=== PATIENT | male | born 1965 | race Caucasian/White ===

== ENCOUNTER 2016-11-16 09:19 | Outpatient (CLI) | payer MEDICARE ==
[2016-11-16 12:29] LABS: #Basophils 0.1 thou/uL (0.0-0.2); #Eosinphils 0.3 thou/uL (0.0-0.7); #Lymphocytes 3.1 thou/uL (1.20-3.40); #Monocytes 0.6 thou/uL (0.11-0.59); #Neutrophils 4.5 thou/uL (1.40-6.50); %Eosinophils 3.5 % (0.0-10.0); %Monocytes 6.5 % (0.0-10.0); Hematocrit 49.9 % (42.0-52.0); Mean Platelet Volume 6.4 fL (7.4-10.4); Red Blood Cell (RBC) Count 5.75 mill/uL (4.70-6.10); White Blood Cell (WBC) Count 8.6 thou/uL (4.8-10.8)
[2016-11-16 12:39] LABS: ALT (SGPT) 19 U/L (0-55); AST (SGOT) 19 U/L (5-34); Alkaline Phosphatase 70 U/L (40-150); Anion Gap 19 mmol/L (10-20); BUN (Urea Nitrogen) 20 mg/dL (8.4-25.7); Bilirubin, Direct 0.1 mg/dL (0.1-0.3); Bilirubin, Total 0.3 mg/dL (0.2-1.2); Calc. Creatinine Clearance 0 mL/min (70-130); Calcium 9.7 mg/dL (7.8-10.44); Carbon Dioxide 19 mmol/L (22-29); Chloride 104 mmol/L (98-107); Estimated GFR-MDRD Greater than 90; LDL Cholesterol, Calculated 95 mg/dL; Protein, Total 6.8 g/dL (6.0-8.3)
[2016-11-16 13:02] LABS: Hemoglobin A1c 5.8 % (4.0-6.0)
== END 2016-11-16 09:20 | disposition home or self-care (01) ==
LOC: NAVSJIPCSP 09:19 → EDSTATUS 12:58
PROVIDERS: ATTEND Nurse Practitioner Family
DX: Z12.5 Encounter for screening for malignant neoplasm of prostate (principal); I11.9 Hypertensive heart disease without heart failure; I63.9 Cerebral infarction, unspecified; E11.9 Type 2 diabetes mellitus without complications; R56.9 Unspecified convulsions; Z79.899 Other long term (current) drug therapy
CPT/HCPCS: 36415; 80048; 80061; 80076; 83036; 84443; 85025; G0103

== ENCOUNTER 2017-03-22 10:31 | Outpatient (CLI) | payer MEDICARE, OTHER ==
[2017-03-22 14:23] LABS: #Basophils 0.1 thou/uL (0.0-0.2); #Eosinphils 0.3 thou/uL (0.0-0.7); #Lymphocytes 2.8 thou/uL (1.20-3.40); #Monocytes 0.4 thou/uL (0.11-0.59); #Neutrophils 4.2 thou/uL (1.40-6.50); %Basophils 0.8 % (0.0-1.0); %Eosinophils 3.6 % (0.0-10.0); %Lymphocytes 36.1 % (21.0-51.0); %Monocytes 5.2 % (0.0-10.0); %Neutrophils 54.3 % (42.0-75.0); Hemoglobin 15.7 g/dL (14.0-18.0); Mean Corpuscular HGB CONC 32.2 g/dL (32.0-36.0); Mean Corpuscular Volume 83.8 fl (80.0-94.0); Mean Platelet Volume 6.8 fL (7.4-10.4); Platelet Count 258 thou/uL (130-400); RBC Distribution Width 12.6 % (11.5-14.5); Red Blood Cell (RBC) Count 5.82 mill/uL (4.70-6.10); White Blood Cell (WBC) Count 7.8 thou/uL (4.8-10.8)
[2017-03-22 14:32] LABS: ALT (SGPT) 36 U/L (8-55); AST (SGOT) 19 U/L (5-34); Albumin 4.3 g/dL (3.5-5.0); Alkaline Phosphatase 97 U/L (40-150); Anion Gap 17 mmol/L (10-20); BUN (Urea Nitrogen) 13 mg/dL (8.4-25.7); Bilirubin, Direct 0.1 mg/dL (0.1-0.3); Bilirubin, Total 0.3 mg/dL (0.2-1.2); Calc. Creatinine Clearance 0 mL/min (70-130); Calcium 9.3 mg/dL (7.8-10.44); Carbon Dioxide 22 mmol/L (22-29); Cardiac Risk 3.8 (Less than 4.5); Chloride 101 mmol/L (98-107); Cholesterol 128 mg/dl (< 200 Desired); Estimated GFR-MDRD Greater than 90; Glucose 97 mg/dL (70-105); HDL Cholesterol 34 mg/dL (>60 Neg Risk); LDL Cholesterol, Calculated 45 mg/dL; Potassium 4.4 mmol/L (3.5-5.1); Protein, Total 6.4 g/dL (6.0-8.3); Sodium 136 mmol/L (136-145); Triglycerides 246 mg/dL (Less than 150)
[2017-03-22 14:43] LABS: PSA-Asymptomatic (SCREENING) 0.5 ng/mL (0-4.0); Thyroid Stimulating Hormone 0.5641 uIU/mL (0.35-4.94)
== END 2017-03-22 10:32 ==
LOC: NAVSJIPCSP 10:31
PROVIDERS: ATTEND Nurse Practitioner Family
DX: Z12.5 Encounter for screening for malignant neoplasm of prostate (principal); E11.9 Type 2 diabetes mellitus without complications; I63.9 Cerebral infarction, unspecified; I11.9 Hypertensive heart disease without heart failure; I73.9 Peripheral vascular disease, unspecified
CPT/HCPCS: 36415; 80048; 80061; 80076; 83036; 84443; 85025; G0103

== ENCOUNTER 2018-09-30 11:27 | Outpatient (CLI) | payer MEDICARE, MEDICAID ==
--- NOTE | 2018-09-30 13:54 | RAD ---
FRONTAL AND LATERAL IMAGING LEFT HIP: DATE: 09/30/2018. HISTORY: Left hip pain. FINDINGS: There is prominent degenerative change involving the left hip with superior joint space narrowing as well as prominent subchondral sclerosis of the acetabular roof and the femoral head. There is also p rominent lateral acetabular osteophyte formation. There is postoperative hardware within the femoral shaft and femoral neck. Postoperative antegrade intramedullary bryce extends to the level of the dist al left femur. No evidence for hardware failure. No acute fracture or dislocation. IMPRESSION: Postoperative changes of the left femur. Severe left hip degenerative joint disease. POS: [facility]
== END 2018-09-30 11:28 | disposition home or self-care (01) ==
LOC: NAV RAD 11:27
PROVIDERS: ATTEND Family Medicine
DX: M25.552 Pain in left hip (principal); M16.12 Unilateral primary osteoarthritis, left hip; Z98.890 Other specified postprocedural states

== ENCOUNTER 2019-05-13 09:49 | Emergency (ER) | payer MEDICARE, MEDICAID | END 2019-05-13 10:20 | disposition home or self-care (01) | LOC: NAV ERS 09:49 | DX: L72.3 Sebaceous cyst (principal); K21.9 Gastro-esophageal reflux disease without esophagitis; I10 Essential (primary) hypertension; F41.9 Anxiety disorder, unspecified; F17.210 Nicotine dependence, cigarettes, uncomplicated; Z79.01 Long term (current) use of anticoagulants; Z79.899 Other long term (current) drug therapy; Z79.82 Long term (current) use of aspirin; Z86.73 Personal history of transient ischemic attack (TIA), and cerebral infarction without residual deficits; Z86.718 Personal history of other venous thrombosis and embolism | CPT/HCPCS: 99282 ==

== ENCOUNTER 2020-11-17 17:47 | Emergency (ER) | payer MEDICARE, OTHER, MEDICAID ==
[2020-11-17 18:54] LABS: Bilirubin Negative (Negative); Blood, Urine Trace (Negative); Glucose, Urine (Dipstick) Negative (Negative); Ketone, Urine Negative (Negative); Leukocyte Negative (Negative); Nitrite Negative (Negative); Protein, Urine (Dipstick) 30 mg/dL (Neg-Trace); Urobilinogen 0.2 mg/dL (Less than 2)
[2020-11-17 18:57] LABS: Clarity SL HAZY (Clear)
[2020-11-17] MEDS ORDERED: Sodium Chloride 0.9% 2,000 ML ONE (19:02)
[2020-11-17 19:06] LABS: RBC/HPF 0-3 HPF (0-3); Squamous Epithelial 0-3 HPF (0-3); WBC/HPF 0-3 HPF (0-3)
[2020-11-17] MEDS ORDERED: Bisacodyl 10 MG SUPP ONE (19:18)
[2020-11-17 20:01] LABS: #Basophils 0.1 thou/uL (0.0-0.2); #Eosinphils 0.2 thou/uL (0.0-0.7); #Monocytes 1.2 thou/uL (0.11-0.59); #Neutrophils 11.5 thou/uL (1.40-6.50); %Basophils 0.6 % (0.0-1.0); %Lymphocytes 18.9 % (21.0-51.0); %Monocytes 7.4 % (0.0-10.0); %Neutrophils 72.2 % (42.0-75.0); Hemoglobin 15.6 g/dL (14.0-18.0); Mean Corpuscular HGB CONC 34.3 g/dL (32.0-36.0); Mean Corpuscular Hemoglobin 29.2 pg (27.0-31.0); Mean Corpuscular Volume 84.9 fL (78.0-98.0); Mean Platelet Volume 7.1 fL (7.4-10.4); Platelet Count 328 thou/uL (130-400); RBC Distribution Width 12.3 % (11.5-14.5); Red Blood Cell (RBC) Count 5.35 mill/uL (4.70-6.10)
[2020-11-17 20:07] LABS: ALT (SGPT) 16 U/L (8-55); AST (SGOT) 15 U/L (5-34); Albumin 4.1 g/dL (3.5-5.0); Alkaline Phosphatase 82 U/L (40-110); Anion Gap 18 mmol/L (10-20); BUN (Urea Nitrogen) 13 mg/dL (8.4-25.7); Bilirubin, Total 0.3 mg/dL (0.2-1.2); Calc. Creatinine Clearance 0 mL/min (70-130); Calcium 9.3 mg/dL (7.8-10.44); Carbon Dioxide 20 mmol/L (22-29); Chloride 101 mmol/L (98-107); Globulin 2.9 g/dL (2.4-3.5); Glucose 114 mg/dL (70-105); Potassium 3.5 mmol/L (3.5-5.1); Sodium 135 mmol/L (136-145)
== END 2020-11-17 20:42 | disposition home or self-care (01) ==
LOC: NAV ERS 17:47
DX: K59.00 Constipation, unspecified (principal); K64.4 Residual hemorrhoidal skin tags; K64.8 Other hemorrhoids; E86.9 Volume depletion, unspecified; K21.9 Gastro-esophageal reflux disease without esophagitis; I10 Essential (primary) hypertension; Z86.73 Personal history of transient ischemic attack (TIA), and cerebral infarction without residual deficits; F17.210 Nicotine dependence, cigarettes, uncomplicated; Z79.82 Long term (current) use of aspirin; Z79.899 Other long term (current) drug therapy
CPT/HCPCS: 74019; 80053; 81003; 81015; 82274; 85025; J7050

== ENCOUNTER 2022-02-01 11:37 | Emergency (ER) | payer MEDICARE, MEDICAID ==
[2022-02-01] MEDS ORDERED: Lidocaine 1% 20 ML MDV ONE (12:10)
[2022-02-01] MEDS ORDERED: Boostrix 0.5 ML (Tdap) VIAL ONE (12:10)
[2022-02-01] MEDS ORDERED: Bacitracin 1 PK ONE (12:53)
[2022-02-01] MEDS ORDERED: Sulfameth/Trimethoprim DS 800-160mg TAB ONE (13:05)
== END 2022-02-01 13:09 | disposition home or self-care (01) ==
LOC: NAV ERS 11:37
DX: L02.31 Cutaneous abscess of buttock (principal); Z86.718 Personal history of other venous thrombosis and embolism; K21.9 Gastro-esophageal reflux disease without esophagitis; I10 Essential (primary) hypertension; Z86.73 Personal history of transient ischemic attack (TIA), and cerebral infarction without residual deficits; F17.210 Nicotine dependence, cigarettes, uncomplicated; Z23 Encounter for immunization
CPT/HCPCS: 10060; 87070; 87205; 90471; 90715

== ENCOUNTER 2022-10-12 12:02 | Emergency (ER) | payer MEDICARE, MEDICAID ==
[2022-10-12] MEDS ORDERED: Lidocaine 1% (PF) 30 ML VIAL ONE (12:51)
[2022-10-12] MEDS ORDERED: Clindamycin 150 MG CAP ONE (12:52)
== END 2022-10-12 13:48 | disposition home or self-care (01) ==
LOC: NAV ERS 12:02
DX: L02.31 Cutaneous abscess of buttock (principal); K21.9 Gastro-esophageal reflux disease without esophagitis; I10 Essential (primary) hypertension; F17.210 Nicotine dependence, cigarettes, uncomplicated
CPT/HCPCS: 10060; 87070; 87205; J2001

== ENCOUNTER 2023-03-19 04:37 | Emergency (ER) | payer MEDICARE, MEDICAID ==
[2023-03-19] MEDS ORDERED: Sodium Chloride 0.9% 1,000 ML ONE (05:33)
[2023-03-19 05:48] LABS: #Basophils 0.1 thou/uL (0.0-0.2); #Eosinphils 0.1 thou/uL (0.0-0.7); #Lymphocytes 2.4 thou/uL (1.20-3.40); #Neutrophils 8.6 thou/uL (1.40-6.50); %Basophils 0.8 % (0.0-1.0); %Eosinophils 1.2 % (0.0-10.0); %Lymphocytes 19.8 % (21.0-51.0); %Monocytes 8.2 % (0.0-10.0); Hemoglobin 14.2 g/dL (14.0-18.0); Mean Corpuscular HGB CONC 31.7 g/dL (32.0-36.0); Mean Corpuscular Hemoglobin 26.2 pg (27.0-31.0); Mean Corpuscular Volume 82.6 fl (78.0-98.0); Mean Platelet Volume 6.9 fL (7.4-10.4); Platelet Count 316 10x3/uL (130-400); Red Blood Cell (RBC) Count 5.43 mill/uL (4.70-6.10); White Blood Cell (WBC) Count 12.3 10x3/uL (4.8-10.8)
[2023-03-19 06:08] LABS: ALT (SGPT) 11 U/L (8-55); AST (SGOT) 11 U/L (5-34); Albumin 4.1 g/dL (3.5-5.0); Alkaline Phosphatase 60 U/L (40-110); Anion Gap 14 mmol/L (10-20); BUN (Urea Nitrogen) 27 mg/dL (8.4-25.7); Bilirubin, Total 0.3 mg/dL (0.2-1.2); Calc. Creatinine Clearance 0 mL/min (70-130); Calcium 9.8 mg/dL (7.8-10.44); Carbon Dioxide 24 mmol/L (22-29); Chloride 104 mmol/L (98-107); Estimated GFR 99; Globulin 3.1 g/dL (2.4-3.5); Glucose 148 mg/dL (70-105); Potassium 3.6 mmol/L (3.5-5.1); Protein, Total 7.2 g/dL (6.0-8.3); Sodium 138 mmol/L (136-145)
== END 2023-03-19 14:15 | disposition left against medical advice (07) ==
LOC: NAV ERS 04:37
DX: K92.2 Gastrointestinal hemorrhage, unspecified (principal); D72.829 Elevated white blood cell count, unspecified; K21.9 Gastro-esophageal reflux disease without esophagitis; I10 Essential (primary) hypertension; F17.210 Nicotine dependence, cigarettes, uncomplicated; Z79.82 Long term (current) use of aspirin; Z79.899 Other long term (current) drug therapy
CPT/HCPCS: 71045; 80053; 83880; 84484; 85025; 93005; 94760; 96360; J7050

== ENCOUNTER 2023-06-15 10:42 | Emergency (ER) | payer MEDICARE, MEDICAID | END 2023-06-15 11:20 | disposition home or self-care (01) | LOC: NAV ERS 10:42 | DX: H61.21 Impacted cerumen, right ear (principal); F17.210 Nicotine dependence, cigarettes, uncomplicated; K21.9 Gastro-esophageal reflux disease without esophagitis; Z79.899 Other long term (current) drug therapy | CPT/HCPCS: 99282 ==

== ENCOUNTER 2023-11-26 11:09 | Outpatient (CLI) | payer MEDICARE, MEDICAID | END 2023-11-26 11:10 | disposition home or self-care (01) | LOC: NAV CT 11:09 | PROVIDERS: ATTEND Neurological Surgery | DX: B33.4 Hantavirus (cardio)-pulmonary syndrome [HPS] [HCPS] (principal); I61.9 Nontraumatic intracerebral hemorrhage, unspecified; N28.1 Cyst of kidney, acquired; G93.89 Other specified disorders of brain; Z98.2 Presence of cerebrospinal fluid drainage device | CPT/HCPCS: 70450; 74150 ==

== ENCOUNTER 2024-06-05 08:32 | Inpatient (IN) | payer OTHER ==
[2024-06-05 09:33] LABS: SARS-CoV-2 E Target Negative; SARS-CoV-2 N2 Target Negative; SARS-CoV-2 NAA Rapid Test Not Detected (NotDetected); SARS-CoV-2 RdRP gene Negative
[2024-06-05 10:36] LABS: Anion Gap 19 mmol/L (10-20); BUN (Urea Nitrogen) 26 mg/dL (8.4-25.7); Calc. Creatinine Clearance 0 mL/min (70-130); Calcium 9.5 mg/dL (7.8-10.44); Carbon Dioxide 20 mmol/L (22-29); Chloride 98 mmol/L (98-107); Estimated GFR 98; Glucose 120 mg/dL (70-105); Potassium 3.1 mmol/L (3.5-5.1); Sodium 134 mmol/L (136-145)
[2024-06-05 10:54] LABS: ALT (SGPT) 17 U/L (8-55); AST (SGOT) 26 U/L (5-34); Albumin 2.7 g/dL (3.5-5.0); Alkaline Phosphatase 80 U/L (40-110); Bilirubin, Total 0.2 mg/dL (0.2-1.2); Protein, Total 6.9 g/dL (6.0-8.3)
[2024-06-05 11:01] LABS: Hematocrit 34.5 % (42.0-52.0); Hemoglobin 10.9 g/dL (14.0-18.0); Mean Corpuscular HGB CONC 31.5 g/dL (32.0-36.0); Mean Corpuscular Hemoglobin 24.7 pg (27.0-31.0); Mean Corpuscular Volume 78.4 fl (78.0-98.0); Mean Platelet Volume 7.1 fL (7.4-10.4); Platelet Count 556 10x3/uL (130-400); RBC Distribution Width 13.3 % (11.5-14.5); Red Blood Cell (RBC) Count 4.41 mill/uL (4.70-6.10); White Blood Cell (WBC) Count 19.9 10x3/uL (4.8-10.8)
[2024-06-05 11:02] LABS: Band 3 % (5-11); Lymphocytes 19 % (21-51); MDiff Complete? YES; Monocytes 6 % (0-10); Neutrophil 72 % (42-75); Platelet Adequacy Comment Appears Adequate
[2024-06-05] MEDS ORDERED: Ondansetron ODT 4 MG TAB SL PRN (12:16)
[2024-06-05] MEDS ORDERED: Senokot S 8.6-50 MG TAB PO PRN (12:16)
[2024-06-05] MEDS ORDERED: Acetaminophen 325 MG TAB PO PRN (12:16)
[2024-06-05 14:42] VITALS: BMI 30.2
[2024-06-05] MEDS: Sodium Chloride 0.9% 100 ML ONE (15:17)
[2024-06-05] MEDS: Potassium Chloride 20 MEQ TAB ONE (15:17)
[2024-06-05] MEDS: Acetaminophen 325 MG TAB ONE (15:17)
[2024-06-05] MEDS: Ipratropium/Albuterol 3 ML NEB ONE (15:17)
[2024-06-05] MEDS: Sodium Chloride 0.9% 1,000 ML ONE (15:17)
[2024-06-05] MEDS: cefTRIAXone (ROCEPHIN) 2 GM VIAL ONE (15:17)
[2024-06-05] MEDS: Azithromycin 500 MG VIAL ONE (15:18)
[2024-06-05] MEDS: Sodium Chloride 0.9% 250 ML 250 ML ONE (15:18)
[2024-06-05] MEDS: predniSONE 20 MG TAB PO SCH (15:22)
[2024-06-05] MEDS: Ipratropium/Albuterol 3 ML NEB NEB PRN (15:25)
[2024-06-05] MEDS: Ipratropium/Albuterol 3 ML NEB NEB SCH (15:27)
[2024-06-05] MEDS: Sodium Chloride 0.9% 1,000 ML IV SCH (16:10)
[2024-06-05 19:47] LABS: Dilantin 8.2 ug/mL (10.0-20.0)
[2024-06-05] MEDS ORDERED: NIRMATRELVIR 150 MG (X 2)/RITONAVIR 100 MG TAB PO SCH (21:00)
[2024-06-05] MEDS: Phenytoin Extended Release 100 MG CAP PO SCH (21:07)
[2024-06-05] MEDS: Lisinopril 20 MG TAB PO SCH (21:07)
[2024-06-05] MEDS: Famotidine 20 MG TAB PO SCH (21:07)
[2024-06-06 05:58] LABS: #Monocytes 0.9 thou/uL (0.11-0.59); #Neutrophils 7.9 thou/uL (1.40-6.50); %Basophils 0.4 % (0.0-1.0); %Eosinophils 0.3 % (0.0-10.0); %Monocytes 8.3 % (0.0-10.0); %Neutrophils 72.9 % (42.0-75.0); Hematocrit 32.8 % (42.0-52.0); Hemoglobin 10.1 g/dL (14.0-18.0); Mean Corpuscular HGB CONC 30.8 g/dL (32.0-36.0); Mean Corpuscular Hemoglobin 24.3 pg (27.0-31.0); Mean Corpuscular Volume 78.8 fl (78.0-98.0); Mean Platelet Volume 6.5 fL (7.4-10.4); Platelet Count 462 10x3/uL (130-400); RBC Distribution Width 13.4 % (11.5-14.5); Red Blood Cell (RBC) Count 4.16 mill/uL (4.70-6.10); White Blood Cell (WBC) Count 10.9 10x3/uL (4.8-10.8)
[2024-06-06 06:07] LABS: Anion Gap 14 mmol/L (10-20); BUN (Urea Nitrogen) 12 mg/dL (8.4-25.7); Calc. Creatinine Clearance 160 mL/min (70-130); Calcium 8.8 mg/dL (7.8-10.44); Carbon Dioxide 23 mmol/L (22-29); Chloride 106 mmol/L (98-107); Estimated GFR 110; Glucose 93 mg/dL (70-105); Potassium 3.2 mmol/L (3.5-5.1); Sodium 140 mmol/L (136-145)
[2024-06-06] MEDS: REMDESIVIR 200 MG in Sodium Chloride 0.9% 250 ML 210 ML IV SCH (09:03)
[2024-06-06] MEDS: Aspirin Chewable 81 MG TAB PO SCH (09:22)
[2024-06-06] MEDS: Clopidogrel Bisulfate 75 MG TAB PO SCH (09:22)
[2024-06-06] MEDS: Oxybutynin ER 5 MG TAB PO SCH (09:22)
[2024-06-06] MEDS: predniSONE 20 MG TAB PO SCH (09:23)
[2024-06-06] MEDS: Nicotine 21 MG PATCH TD SCH (09:23)
[2024-06-06] MEDS: cefTRIAXone\\ROCEPHIN 1 GM in Sodium Chloride 0.9% 100 ML IVPB SCH (09:25)
[2024-06-06] MEDS: Azithromycin 500 MG in Sodium Chloride 0.9% 250 ML 250 ML IVPB SCH (11:26)
[2024-06-06] MEDS: Potassium Chloride 20 MEQ TAB PO SCH (12:27)
[2024-06-06] MEDS: ALPRAZolam 0.5 MG TAB PO PRN (20:49)
[2024-06-06] MEDS: Mometasone 100 MCG/Formoterol 5 MCG 60 PUFF AEROSOL INH SCH (20:49)
[2024-06-07] MEDS: Benzonatate 100 MG CAP PO SCH (01:27)
[2024-06-07] MEDS: Guaifenesin DM 100-10/5 ML UDCUP PO PRN (05:19)
[2024-06-07 06:08] LABS: #Basophils 0.1 thou/uL (0.0-0.2); #Eosinphils 0.1 thou/uL (0.0-0.7); #Lymphocytes 2.1 thou/uL (1.20-3.40); #Monocytes 0.8 thou/uL (0.11-0.59); #Neutrophils 5.2 thou/uL (1.40-6.50); %Basophils 1.2 % (0.0-1.0); %Eosinophils 0.7 % (0.0-10.0); %Lymphocytes 25.8 % (21.0-51.0); %Monocytes 9.3 % (0.0-10.0); %Neutrophils 63.1 % (42.0-75.0); Hematocrit 29.7 % (42.0-52.0); Hemoglobin 9.4 g/dL (14.0-18.0); Mean Corpuscular HGB CONC 31.6 g/dL (32.0-36.0); Mean Corpuscular Hemoglobin 24.8 pg (27.0-31.0); Mean Corpuscular Volume 78.4 fl (78.0-98.0); Mean Platelet Volume 6.3 fL (7.4-10.4); Platelet Count 493 10x3/uL (130-400); RBC Distribution Width 13.8 % (11.5-14.5); Red Blood Cell (RBC) Count 3.79 mill/uL (4.70-6.10); White Blood Cell (WBC) Count 8.2 10x3/uL (4.8-10.8)
[2024-06-07 06:09] LABS: Anion Gap 14 mmol/L (10-20); BUN (Urea Nitrogen) 11 mg/dL (8.4-25.7); Calc. Creatinine Clearance 165 mL/min (70-130); Calcium 8.8 mg/dL (7.8-10.44); Carbon Dioxide 23 mmol/L (22-29); Chloride 109 mmol/L (98-107); Estimated GFR 111; Glucose 120 mg/dL (70-105); Potassium 3.4 mmol/L (3.5-5.1); Sodium 143 mmol/L (136-145)
[2024-06-07] MEDS: REMDESIVIR 100 MG in Sodium Chloride 0.9% 250 ML 230 ML IV SCH (09:16)
[2024-06-07] MEDS: HYDROcodone/Acetaminophen 10/325 mg Tablet PO PRN (09:37)
[2024-06-07] MEDS: Potassium Chloride 20 MEQ TAB PO SCH (18:19)
[2024-06-08 05:53] LABS: %Lymphocytes 34.2 % (21.0-51.0); %Monocytes 8.9 % (0.0-10.0); %Neutrophils 54.8 % (42.0-75.0); Hematocrit 32.4 % (42.0-52.0); Hemoglobin 9.9 g/dL (14.0-18.0); Mean Corpuscular HGB CONC 30.4 g/dL (32.0-36.0); Mean Corpuscular Hemoglobin 23.9 pg (27.0-31.0); Mean Corpuscular Volume 78.7 fl (78.0-98.0); Mean Platelet Volume 6.3 fL (7.4-10.4); Platelet Count 550 10x3/uL (130-400); RBC Distribution Width 13.9 % (11.5-14.5); Red Blood Cell (RBC) Count 4.11 mill/uL (4.70-6.10); White Blood Cell (WBC) Count 6.2 10x3/uL (4.8-10.8)
[2024-06-08 05:54] LABS: #Basophils 0.1 thou/uL (0.0-0.2); #Eosinphils 0.1 thou/uL (0.0-0.7); #Lymphocytes 2.1 thou/uL (1.20-3.40); #Monocytes 0.5 thou/uL (0.11-0.59); #Neutrophils 3.4 thou/uL (1.40-6.50); %Basophils 1.3 % (0.0-1.0); %Eosinophils 0.9 % (0.0-10.0)
[2024-06-08 06:06] LABS: Anion Gap 13 mmol/L (10-20); BUN (Urea Nitrogen) 10 mg/dL (8.4-25.7); Calc. Creatinine Clearance 168 mL/min (70-130); Carbon Dioxide 25 mmol/L (22-29); Chloride 110 mmol/L (98-107); Estimated GFR 112; Glucose 107 mg/dL (70-105); Potassium 3.7 mmol/L (3.5-5.1); Sodium 144 mmol/L (136-145)
[2024-06-08 13:34] VITALS: TEMP 98
[2024-06-08 16:20] VITALS: BP 174/77
[2024-06-08] MEDS ORDERED: hydrALAZINE 10 MG TAB PO PRN (17:47)
== END 2024-06-08 18:15 | disposition swing bed (61) | DRG 871 ==
LOC: NAV ERS 08:32 → UNDOADMIN 13:31 → NAV ACUTE 13:31
PROVIDERS: ADMIT Family Medicine; ATTEND Family Medicine
PROC: 3E03329 Introduction of Other Anti-infective into Peripheral Vein, Percutaneous Approach (ICD-10-PCS; principal; 2024-06-05)
PROC: XW033E5 Introduction of Remdesivir Anti-infective into Peripheral Vein, Percutaneous Approach, New Technology Group 5 (ICD-10-PCS; 2024-06-06)
DX: A41.9 Sepsis, unspecified organism (principal); J18.9 Pneumonia, unspecified organism; J96.01 Acute respiratory failure with hypoxia; U07.1 COVID-19; J44.1 Chronic obstructive pulmonary disease with (acute) exacerbation; E87.6 Hypokalemia; I10 Essential (primary) hypertension; E78.5 Hyperlipidemia, unspecified; Z79.899 Other long term (current) drug therapy; Z90.89 Acquired absence of other organs; Z98.890 Other specified postprocedural states
CPT/HCPCS: 36415; 71046; 80048; 80185; 82040; 82247; 83605; 84075; 84145; 84155; 84450; 84460; 85025; 87040; 87070; 87077; 87205; 87804; 94640; 94664; 94760; 96365; 96367; J0248; J0456; J0696; J7030; J7050; J7512; J7620; U0002

== ENCOUNTER 2024-06-08 15:10 | Inpatient (IN) | payer OTHER ==
[2024-06-08] MEDS ORDERED: hydrALAZINE 10 MG TAB PO PRN (17:53)
[2024-06-08] MEDS ORDERED: HYDROcodone/Acetaminophen 10/325 mg Tablet PO PRN (17:53)
[2024-06-08] MEDS ORDERED: Guaifenesin DM 100-10/5 ML UDCUP PO PRN (17:53)
[2024-06-08] MEDS ORDERED: Acetaminophen 325 MG TAB PO PRN (17:53)
[2024-06-08] MEDS ORDERED: Senokot S 8.6-50 MG TAB PO PRN (17:57)
[2024-06-08] MEDS ORDERED: Ondansetron ODT 4 MG TAB SL PRN (17:57)
[2024-06-08] MEDS ORDERED: REMDESIVIR 100 MG IV SCH (18:00)
[2024-06-08] MEDS: Ipratropium/Albuterol 3 ML NEB NEB SCH (18:33)
[2024-06-08] MEDS ORDERED: Phenytoin Extended Release 100 MG CAP PO SCH (21:00)
[2024-06-08] MEDS: Benzonatate 100 MG CAP PO SCH (22:09)
[2024-06-08] MEDS: Lisinopril 20 MG TAB PO SCH (22:09)
[2024-06-08] MEDS: Mometasone 100 MCG/Formoterol 5 MCG 60 PUFF AEROSOL INH SCH (22:10)
[2024-06-08] MEDS: Phenytoin Extended Release 100 MG CAP PO SCH (22:10)
[2024-06-08] MEDS: Famotidine 20 MG TAB PO SCH (22:10)
[2024-06-08] MEDS: Ipratropium/Albuterol 3 ML NEB NEB PRN (22:13)
[2024-06-08 23:59] VITALS: BMI 30.3
[2024-06-09 05:53] LABS: #Basophils 0.1 thou/uL (0.0-0.2); #Eosinphils 0.1 thou/uL (0.0-0.7); #Lymphocytes 2.2 thou/uL (1.20-3.40); #Monocytes 0.7 thou/uL (0.11-0.59); #Neutrophils 5.1 thou/uL (1.40-6.50); %Basophils 1.3 % (0.0-1.0); %Eosinophils 0.9 % (0.0-10.0); %Lymphocytes 26.7 % (21.0-51.0); %Monocytes 8.6 % (0.0-10.0); %Neutrophils 62.5 % (42.0-75.0); Hematocrit 33.5 % (42.0-52.0); Hemoglobin 10.3 g/dL (14.0-18.0); Mean Corpuscular HGB CONC 30.8 g/dL (32.0-36.0); Mean Corpuscular Hemoglobin 24.3 pg (27.0-31.0); Mean Corpuscular Volume 78.8 fl (78.0-98.0); Mean Platelet Volume 5.9 fL (7.4-10.4); Platelet Count 603 10x3/uL (130-400); RBC Distribution Width 13.8 % (11.5-14.5); Red Blood Cell (RBC) Count 4.25 mill/uL (4.70-6.10); White Blood Cell (WBC) Count 8.2 10x3/uL (4.8-10.8)
[2024-06-09 06:05] LABS: ALT (SGPT) 82 U/L (8-55); AST (SGOT) 55 U/L (5-34); Albumin 2.5 g/dL (3.5-5.0); Alkaline Phosphatase 74 U/L (40-110); Anion Gap 14 mmol/L (10-20); BUN (Urea Nitrogen) 10 mg/dL (8.4-25.7); Bilirubin, Total Less than 0.2 mg/dL (0.2-1.2); Calc. Creatinine Clearance 155 mL/min (70-130); Calcium 9.1 mg/dL (7.8-10.44); Carbon Dioxide 25 mmol/L (22-29); Chloride 107 mmol/L (98-107); Estimated GFR 109; Globulin 3.2 g/dL (2.4-3.5); Glucose 99 mg/dL (70-105); Potassium 3.7 mmol/L (3.5-5.1); Protein, Total 5.7 g/dL (6.0-8.3); Sodium 142 mmol/L (136-145)
[2024-06-09 06:30] VITALS: BMI 30.3
[2024-06-09] MEDS: Clopidogrel Bisulfate 75 MG TAB PO SCH (08:39)
[2024-06-09] MEDS: Aspirin Chewable 81 MG TAB PO SCH (08:39)
[2024-06-09] MEDS: Oxybutynin ER 5 MG TAB PO SCH (08:39)
[2024-06-09] MEDS: Hydrochlorothiazide 25 MG TAB PO SCH (08:40)
[2024-06-09] MEDS: predniSONE 20 MG TAB PO SCH (08:41)
[2024-06-09] MEDS: Nicotine 21 MG PATCH TD SCH (08:41)
[2024-06-09] MEDS: REMDESIVIR 100 MG in Sodium Chloride 0.9% 250 ML 230 ML IV SCH (08:55)
[2024-06-09] MEDS ORDERED: cefTRIAXone (ROCEPHIN) 1 GM VIAL IVPB SCH (10:00)
[2024-06-09] MEDS ORDERED: Azithromycin 500 MG VIAL IVPB SCH (11:00)
[2024-06-09] MEDS: cefTRIAXone\\ROCEPHIN 1 GM in Sodium Chloride 0.9% 100 ML IVPB SCH (15:08)
[2024-06-09] MEDS: Azithromycin 500 MG in Sodium Chloride 0.9% 250 ML 250 ML IVPB SCH (19:24)
[2024-06-09] MEDS: ALPRAZolam 0.5 MG TAB PO PRN (20:41)
[2024-06-09 22:19] VITALS: BP 195/91; TEMP 98.3
== END 2024-06-09 21:36 | disposition left against medical advice (07) | DRG 871 ==
LOC: NAV ACUTE 18:21
PROVIDERS: ADMIT Family Medicine; ATTEND Family Medicine
DX: A41.9 Sepsis, unspecified organism (principal); J18.9 Pneumonia, unspecified organism; U07.1 COVID-19; J96.01 Acute respiratory failure with hypoxia; J44.1 Chronic obstructive pulmonary disease with (acute) exacerbation; F17.210 Nicotine dependence, cigarettes, uncomplicated; R74.01 Elevation of levels of liver transaminase levels; Z90.89 Acquired absence of other organs; Z98.890 Other specified postprocedural states
CPT/HCPCS: 36415; 80053; 85025; 94664; J0248; J0456; J0696; J7050; J7512; J7620

== ENCOUNTER 2024-08-20 08:42 | Emergency (ER) | payer OTHER | END 2024-08-20 10:12 | disposition home or self-care (01) | LOC: NAV ERS 08:42 | DX: K56.41 Fecal impaction (principal); I10 Essential (primary) hypertension; K21.9 Gastro-esophageal reflux disease without esophagitis; E78.5 Hyperlipidemia, unspecified; F17.210 Nicotine dependence, cigarettes, uncomplicated; Z86.73 Personal history of transient ischemic attack (TIA), and cerebral infarction without residual deficits; Z79.82 Long term (current) use of aspirin; Z79.899 Other long term (current) drug therapy | CPT/HCPCS: 99283 ==

== ENCOUNTER 2024-08-31 01:34 | Emergency (ER) | payer OTHER ==
[2024-08-31] MEDS ORDERED: Fleet Saline Enema 133 ML BOT ONE (02:04)
== END 2024-08-31 03:03 | disposition home or self-care (01) ==
LOC: NAV ERS 01:34
DX: K59.00 Constipation, unspecified (principal); G89.29 Other chronic pain; I10 Essential (primary) hypertension; E78.00 Pure hypercholesterolemia, unspecified; K21.9 Gastro-esophageal reflux disease without esophagitis; F17.210 Nicotine dependence, cigarettes, uncomplicated; Z86.73 Personal history of transient ischemic attack (TIA), and cerebral infarction without residual deficits; Z79.82 Long term (current) use of aspirin; Z79.02 Long term (current) use of antithrombotics/antiplatelets; Z79.51 Long term (current) use of inhaled steroids; Z79.899 Other long term (current) drug therapy
CPT/HCPCS: 99283

== ENCOUNTER 2024-10-06 16:37 | Emergency (ER) | payer OTHER ==
[2024-10-06 18:04] LABS: Hematocrit 27.2 % (42.0-52.0); Hemoglobin 7.6 g/dL (14.0-18.0)
== END 2024-10-06 20:58 | disposition home or self-care (01) ==
LOC: NAV ERS 16:37
DX: D53.9 Nutritional anemia, unspecified (principal); J44.9 Chronic obstructive pulmonary disease, unspecified; K92.1 Melena; I73.9 Peripheral vascular disease, unspecified; I10 Essential (primary) hypertension; F17.210 Nicotine dependence, cigarettes, uncomplicated; K21.9 Gastro-esophageal reflux disease without esophagitis; Z79.51 Long term (current) use of inhaled steroids; Z79.899 Other long term (current) drug therapy
CPT/HCPCS: 36415; 85014; 85018; 99285

== ENCOUNTER 2025-06-18 20:35 | Emergency (ER) | payer OTHER | END 2025-06-18 21:30 | disposition home or self-care (01) | LOC: NAV ERS 20:35 | DX: K56.41 Fecal impaction (principal); K21.9 Gastro-esophageal reflux disease without esophagitis; I10 Essential (primary) hypertension; Z86.73 Personal history of transient ischemic attack (TIA), and cerebral infarction without residual deficits; F17.210 Nicotine dependence, cigarettes, uncomplicated; Z79.899 Other long term (current) drug therapy; Z79.82 Long term (current) use of aspirin; Z79.02 Long term (current) use of antithrombotics/antiplatelets | CPT/HCPCS: 99284 ==

== ENCOUNTER 2025-07-18 13:14 | Outpatient (CLI) | payer OTHER | END 2025-07-18 13:15 | disposition home or self-care (01) | LOC: NAV RAD 13:14 | PROVIDERS: ATTEND Physician Assistant | DX: M54.16 Radiculopathy, lumbar region (principal); M48.061 Spinal stenosis, lumbar region without neurogenic claudication; M48.07 Spinal stenosis, lumbosacral region | CPT/HCPCS: 72131 ==